=== PATIENT | female | born 1930 | race Caucasian/White ===

== ENCOUNTER 2017-09-16 19:57 | Inpatient (IN) | payer OTHER ==
[~2017-09-16] VITALS: Ht 152.4 cm; Wt 99.9 kg
[2017-09-16 20:40] LABS: HEMOGLOBIN 10.9 G/DL (11.9-15.5); MCH 24.3 PG (29.0-34.0); MCHC 30.3 G/DL (30.0-36.0); MCV 80.2 FL (83-99); PLATELET COUNT 224 K/uL (156-360); RBC DIS.WIDTH-CV 14.9 % (11.8-14.6); RBC DIS.WIDTH-SD 43.8 % (39-53); RED BLOOD COUNT 4.49 M/uL (3.80-5.20); WHITE BLOOD COUNT 12.5 K/uL (4.1-10.2)
[2017-09-16 20:58] LABS: CHLORIDE 94 mEq/L (99-109); POTASSIUM 3.7 mEq/L (3.7-5.4); SODIUM 136 mEq/L (136-147)
[2017-09-16 20:59] LABS: GLUCOSE 232 mg/dL (70-99)
[2017-09-16 21:03] LABS: CREATININE 1.1 mg/dL (0.6-1.3); GFR ESTIMATE (CALCULATED) 50 mL/min/
[2017-09-16 21:04] LABS: UREA NITROGEN (BUN) 25 mg/dL (9-23)
[2017-09-16 21:07] LABS: TROP-I INTERPRETATION NEGATIVE; TROPONIN-I 0.03 ng/mL (0.0-0.30)
[2017-09-16] MEDS ORDERED: GLUCOTROL5 MG PO (21:48)
[2017-09-16] MEDS ORDERED: ACTOS15 MG PO (21:48)
[2017-09-16] MEDS ORDERED: GLUCOPHAGE1000 MG PO (21:48)
[2017-09-16] MEDS ORDERED: JANUVIA100 MG PO (21:48)
[2017-09-16] MEDS ORDERED: HYDROCHLOROTHIA25 MG PO (21:49)
[2017-09-16] MEDS ORDERED: PRAVACHOL20 MG PO (21:51)
[2017-09-16] MEDS ORDERED: METOPROLOL SUC100 MG PO (21:51)
[2017-09-16] MEDS ORDERED: VITAMIN D31000 UNIT PO (21:52)
[2017-09-16] MEDS ORDERED: HEARTBURN TREAT15 MG PO (21:52)
[2017-09-16] MEDS ORDERED: BIOTIN5 MG PO (21:53)
[2017-09-16] MEDS ORDERED: PAIN RELIEVER500 MG PO (21:53)
[2017-09-16] MEDS ORDERED: LUMIGAN 0.50 DROP/22 BOTH EYES (21:54)
[2017-09-16 22:31] LABS: ALBUMIN 4.2 g/dL (3.2-4.8)
[2017-09-16 22:34] LABS: TOTAL PROTEIN 7.1 g/dL (6.4-8.3)
[2017-09-16 22:35] LABS: TOTAL BILIRUBIN 0.4 mg/dL (0.0-1.0)
[2017-09-16 22:37] LABS: ALKALINE PHOSPHATASE 65 IU/L (3-129)
[2017-09-16 22:39] LABS: AST (GOT) 24 IU/L (2-34); DIRECT BILIRUBIN 0.2 mg/dL (0.0-0.3)
[2017-09-16 22:40] LABS: ALT (GPT) 24 IU/L (3-49); LIPASE 57 U/L (1.0-51.0)
[2017-09-16 22:51] LABS: INTER. NORMALIZED RATIO 1.1
[2017-09-16] MEDS ORDERED: PROAIR HFA8.5 GM IH (23:15)
[2017-09-16] MEDS ORDERED: GLIPIZIDE XL5 MG PO (23:15)
[2017-09-16] MEDS ORDERED: METFORMIN HCL1000 MG PO (23:16)
[2017-09-16] MEDS ORDERED: PRAVASTATIN SOD20 MG PO (23:16)
[2017-09-17 06:10] LABS: HEMATOCRIT 35.5 % (36.0-46.0); HEMOGLOBIN 10.6 G/DL (11.9-15.5); MCH 23.9 PG (29.0-34.0); MCHC 29.9 G/DL (30.0-36.0); MCV 80.1 FL (83-99); PLATELET COUNT 218 K/uL (156-360); RBC DIS.WIDTH-CV 14.8 % (11.8-14.6); RBC DIS.WIDTH-SD 43.2 % (39-53); RED BLOOD COUNT 4.43 M/uL (3.80-5.20); WHITE BLOOD COUNT 10.7 K/uL (4.1-10.2)
[2017-09-17 06:11] LABS: CHLORIDE 94 mEq/L (99-109); POTASSIUM 3.6 mEq/L (3.7-5.4); SODIUM 136 mEq/L (136-147)
[2017-09-17 06:12] LABS: GLUCOSE 167 mg/dL (70-99)
[2017-09-17 06:16] LABS: CREATININE 0.9 mg/dL (0.6-1.3); GFR ESTIMATE (CALCULATED) > 59 mL/min/
[2017-09-17 06:17] LABS: UREA NITROGEN (BUN) 21 mg/dL (9-23)
[2017-09-17 15:12] VITALS: BP 187/84
[2017-09-17 20:20] VITALS: BP 167/73
[2017-09-17 23:59] VITALS: BP 182/81
[2017-09-18 04:05] VITALS: BP 187/84
[2017-09-18 04:24] VITALS: BP 177/80
[2017-09-18 08:30] VITALS: BP 183/86
[2017-09-18 09:32] LABS: HEMATOCRIT 35.3 % (36.0-46.0); HEMOGLOBIN 10.3 G/DL (11.9-15.5); MCH 23.5 PG (29.0-34.0); MCHC 29.2 G/DL (30.0-36.0); MCV 80.4 FL (83-99); PLATELET COUNT 178 K/uL (156-360); RBC DIS.WIDTH-CV 14.9 % (11.8-14.6); RBC DIS.WIDTH-SD 43.5 % (39-53); RED BLOOD COUNT 4.39 M/uL (3.80-5.20); WHITE BLOOD COUNT 8.9 K/uL (4.1-10.2)
[2017-09-18 09:39] LABS: INTER. NORMALIZED RATIO 1.3
[2017-09-18 10:25] LABS: ALBUMIN 3.7 G/DL (3.2-4.8); ALKALINE PHOSPHATASE 57 IU/L (3-129); ALT (GPT) 26 IU/L (3-49); AST (GOT) 66 IU/L (2-34); CHLORIDE 90 MEQ/L (99-109); CREATININE 0.7 MG/DL (0.6-1.3); GFR ESTIMATE (CALCULATED) > 59 mL/min/; GLUCOSE 239 mg/dL (70-99); POTASSIUM 3.8 MEQ/L (3.7-5.4); SODIUM 137 MEQ/L (136-147); TOTAL BILIRUBIN 0.7 MG/DL (0.0-1.0); TOTAL PROTEIN 6.1 G/DL (6.4-8.3); UREA NITROGEN (BUN) 16 mg/dL (9-23)
[2017-09-18 11:24] VITALS: BP 182/76
[2017-09-18 15:27] VITALS: BP 142/68
[2017-09-18 20:25] VITALS: BP 138/83
[2017-09-19] VITALS (7 sets, daily range): BP systolic 112–175; BP diastolic 55–90
[2017-09-19 06:41] LABS: BASOPHIL (%) 0.4 % (0-1); EOSINOPHIL (%) 2.4 % (0-5); EOSINOPHIL COUNT 0.2 K/uL (0-0.3); HEMATOCRIT 34.8 % (36.0-46.0); HEMOGLOBIN 10.3 G/DL (11.9-15.5); IMMATURE GRANULOCYTE (%) 0.6 % (0.0-0.7); LYMPHOCYTE (%) 29.6 % (15-42); LYMPHOCYTE COUNT 2.3 K/uL (1.0-2.8); MCH 24.2 PG (29.0-34.0); MCHC 29.6 G/DL (30.0-36.0); MCV 81.9 FL (83-99); MONOCYTE (%) 9.4 % (3-12); MONOCYTE COUNT 0.7 K/uL (0-0.8); NEUTROPHIL (%) 57.6 % (45-76); NEUTROPHIL COUNT 4.6 K/uL (1.8-6.4); PLATELET COUNT 199 K/uL (156-360); RBC DIS.WIDTH-CV 15.2 % (11.8-14.6); RED BLOOD COUNT 4.25 M/uL (3.80-5.20); WHITE BLOOD COUNT 7.9 K/uL (4.1-10.2)
[2017-09-19 06:45] LABS: INTER. NORMALIZED RATIO 1.5
[2017-09-19 07:08] LABS: ALBUMIN 3.7 G/DL (3.2-4.8); ALKALINE PHOSPHATASE 53 IU/L (3-129); ALT (GPT) 22 IU/L (3-49); AST (GOT) 42 IU/L (2-34); CHLORIDE 92 MEQ/L (99-109); GFR ESTIMATE (CALCULATED) 56 mL/min/; GLUCOSE 181 mg/dL (70-99); IRON 58 MCG/DL (35-150); POTASSIUM 3.5 MEQ/L (3.7-5.4); SODIUM 136 MEQ/L (136-147); TOTAL BILIRUBIN 0.6 MG/DL (0.0-1.0); TOTAL PROTEIN 6.1 G/DL (6.4-8.3); TRANSFERRIN (TIBC) 345.6 mg/dL (215-380); TRANSFERRIN SATUR. 17 % (20-55); UREA NITROGEN (BUN) 21 mg/dL (9-23)
[2017-09-19 08:00] LABS: FERRITIN 22 NG/ML (10-291)
[2017-09-19 08:13] LABS: THYROTROPIN (TSH) 3.4 MIU/L (0.4-5.5)
[2017-09-19 08:14] LABS: FOLIC ACID (FOLATE) > 22.0 NG/ML (5.0-22.0)
[2017-09-19 14:11] LABS: BASOPHIL (%) 0.5 % (0-1); EOSINOPHIL (%) 2.3 % (0-5); EOSINOPHIL COUNT 0.2 K/uL (0-0.3); HEMATOCRIT 33.6 % (36.0-46.0); HEMOGLOBIN 9.9 G/DL (11.9-15.5); IMMATURE GRANULOCYTE (%) 0.4 % (0.0-0.7); LYMPHOCYTE (%) 20.3 % (15-42); LYMPHOCYTE COUNT 1.6 K/uL (1.0-2.8); MCH 24.2 PG (29.0-34.0); MCHC 29.5 G/DL (30.0-36.0); MCV 82.2 FL (83-99); MONOCYTE (%) 10.5 % (3-12); MONOCYTE COUNT 0.8 K/uL (0-0.8); NEUTROPHIL COUNT 5.2 K/uL (1.8-6.4); PLATELET COUNT 197 K/uL (156-360); RBC DIS.WIDTH-CV 15.1 % (11.8-14.6); RBC DIS.WIDTH-SD 45.1 % (39-53); RED BLOOD COUNT 4.09 M/uL (3.80-5.20); WHITE BLOOD COUNT 7.8 K/uL (4.1-10.2)
[2017-09-19 16:37] LABS: BASOPHIL (%) 0.4 % (0-1); EOSINOPHIL (%) 2.1 % (0-5); EOSINOPHIL COUNT 0.2 K/uL (0-0.3); HEMATOCRIT 33.3 % (36.0-46.0); HEMOGLOBIN 9.8 G/DL (11.9-15.5); IMMATURE GRANULOCYTE (%) 0.5 % (0.0-0.7); LYMPHOCYTE (%) 23.5 % (15-42); LYMPHOCYTE COUNT 1.8 K/uL (1.0-2.8); MCH 24.1 PG (29.0-34.0); MCHC 29.4 G/DL (30.0-36.0); MONOCYTE (%) 8.9 % (3-12); MONOCYTE COUNT 0.7 K/uL (0-0.8); NEUTROPHIL (%) 64.6 % (45-76); PLATELET COUNT 190 K/uL (156-360); RBC DIS.WIDTH-CV 15.2 % (11.8-14.6); RBC DIS.WIDTH-SD 45.5 % (39-53); RED BLOOD COUNT 4.06 M/uL (3.80-5.20); WHITE BLOOD COUNT 7.7 K/uL (4.1-10.2)
[2017-09-20 03:29] VITALS: BP 158/62
[2017-09-20 06:49] LABS: BASOPHIL (%) 0.5 % (0-1); EOSINOPHIL (%) 2.6 % (0-5); EOSINOPHIL COUNT 0.2 K/uL (0-0.3); HEMOGLOBIN 9.3 G/DL (11.9-15.5); IMMATURE GRANULOCYTE (%) 0.5 % (0.0-0.7); LYMPHOCYTE (%) 27.9 % (15-42); LYMPHOCYTE COUNT 2.3 K/uL (1.0-2.8); MCH 23.6 PG (29.0-34.0); MCHC 29.1 G/DL (30.0-36.0); MCV 81.2 FL (83-99); MONOCYTE (%) 9.1 % (3-12); MONOCYTE COUNT 0.7 K/uL (0-0.8); NEUTROPHIL (%) 59.4 % (45-76); NEUTROPHIL COUNT 4.8 K/uL (1.8-6.4); PLATELET COUNT 196 K/uL (156-360); RBC DIS.WIDTH-SD 44.2 % (39-53); RED BLOOD COUNT 3.94 M/uL (3.80-5.20); WHITE BLOOD COUNT 8.1 K/uL (4.1-10.2)
[2017-09-20 06:53] LABS: INTER. NORMALIZED RATIO 1.7
[2017-09-20 07:22] LABS: ALBUMIN 3.6 G/DL (3.2-4.8); ALKALINE PHOSPHATASE 55 IU/L (3-129); ALT (GPT) 25 IU/L (3-49); AST (GOT) 30 IU/L (2-34); CHLORIDE 96 MEQ/L (99-109); CREATININE 1.1 MG/DL (0.6-1.3); GFR ESTIMATE (CALCULATED) 50 mL/min/; GLUCOSE 194 mg/dL (70-99); POTASSIUM 3.8 MEQ/L (3.7-5.4); SODIUM 139 MEQ/L (136-147); TOTAL BILIRUBIN 0.5 MG/DL (0.0-1.0); UREA NITROGEN (BUN) 23 mg/dL (9-23)
[2017-09-20 07:35] VITALS: BP 144/90
[2017-09-20 11:27] VITALS: BP 144/90
[2017-09-20 13:57] LABS: HEMATOCRIT 32.4 % (36.0-46.0); HEMOGLOBIN 9.5 G/DL (11.9-15.5); MCH 23.9 PG (29.0-34.0); MCHC 29.3 G/DL (30.0-36.0); MCV 81.4 FL (83-99); PLATELET COUNT 201 K/uL (156-360); RBC DIS.WIDTH-SD 44.9 % (39-53); RED BLOOD COUNT 3.98 M/uL (3.80-5.20); WHITE BLOOD COUNT 8.4 K/uL (4.1-10.2)
[2017-09-20 15:27] VITALS: BP 141/65
[2017-09-20 20:28] VITALS: BP 165/74
[2017-09-21 00:46] VITALS: BP 145/65
[2017-09-21 04:09] VITALS: BP 182/77
[2017-09-21 06:46] VITALS: BP 175/76
[2017-09-21 07:03] LABS: INTER. NORMALIZED RATIO 1.6
[2017-09-21 07:09] LABS: BASOPHIL (%) 0.5 % (0-1); EOSINOPHIL (%) 2.8 % (0-5); EOSINOPHIL COUNT 0.2 K/uL (0-0.3); HEMATOCRIT 33.2 % (36.0-46.0); HEMOGLOBIN 9.7 G/DL (11.9-15.5); IMMATURE GRANULOCYTE (%) 0.8 % (0.0-0.7); LYMPHOCYTE (%) 28.4 % (15-42); LYMPHOCYTE COUNT 2.3 K/uL (1.0-2.8); MCH 23.6 PG (29.0-34.0); MCHC 29.2 G/DL (30.0-36.0); MCV 80.8 FL (83-99); MONOCYTE (%) 8.3 % (3-12); MONOCYTE COUNT 0.7 K/uL (0-0.8); NEUTROPHIL (%) 59.2 % (45-76); NEUTROPHIL COUNT 4.7 K/uL (1.8-6.4); PLATELET COUNT 192 K/uL (156-360); RBC DIS.WIDTH-CV 15.2 % (11.8-14.6); RBC DIS.WIDTH-SD 43.8 % (39-53); RED BLOOD COUNT 4.11 M/uL (3.80-5.20); WHITE BLOOD COUNT 7.9 K/uL (4.1-10.2)
[2017-09-21 07:34] LABS: ALBUMIN 3.7 G/DL (3.2-4.8); ALKALINE PHOSPHATASE 58 IU/L (3-129); ALT (GPT) 31 IU/L (3-49); AST (GOT) 31 IU/L (2-34); CHLORIDE 97 MEQ/L (99-109); CREATININE 0.9 MG/DL (0.6-1.3); GFR ESTIMATE (CALCULATED) > 59 mL/min/; GLUCOSE 183 mg/dL (70-99); POTASSIUM 3.5 MEQ/L (3.7-5.4); SODIUM 140 MEQ/L (136-147); TOTAL BILIRUBIN 0.5 MG/DL (0.0-1.0); TOTAL PROTEIN 6.1 G/DL (6.4-8.3); UREA NITROGEN (BUN) 21 mg/dL (9-23)
[2017-09-21 10:01] LABS: PTT 33.9 SEC (25-37)
[2017-09-21 11:13] VITALS: BP 145/60
[2017-09-21 15:10] VITALS: BP 150/70
[2017-09-21 19:07] LABS: ACTIVATED PROTEIN C RESIST+ 4.7 ratio (>=2.1); DRVVT Mixing Study Interp Not Indicated (()); FACTOR VIII ACTIVITY+ 198 % (50-180); PROTEIN C FUNCTIONAL ACTIVITY+ 165 % (70-180); PTT-LA 36 sec (<=40); Protein S, Free 108 % normal (50-147); dRVVT Screen 39 sec (<=45)
[2017-09-21 19:30] VITALS: BP 178/72
[2017-09-22 00:15] VITALS: BP 180/72; BP 183/72
[2017-09-22 01:59] LABS: INTER. NORMALIZED RATIO 1.5
[2017-09-22 02:02] LABS: PTT 79.4 SEC (25-37)
[2017-09-22 03:00] VITALS: BP 183/79
[2017-09-22 05:31] LABS: BASOPHIL (%) 0.5 % (0-1); EOSINOPHIL (%) 2.9 % (0-5); EOSINOPHIL COUNT 0.3 K/uL (0-0.3); HEMATOCRIT 32.9 % (36.0-46.0); HEMOGLOBIN 9.6 G/DL (11.9-15.5); IMMATURE GRANULOCYTE (%) 0.7 % (0.0-0.7); LYMPHOCYTE (%) 29.1 % (15-42); LYMPHOCYTE COUNT 2.5 K/uL (1.0-2.8); MCH 23.8 PG (29.0-34.0); MCHC 29.2 G/DL (30.0-36.0); MCV 81.4 FL (83-99); MONOCYTE COUNT 0.8 K/uL (0-0.8); NEUTROPHIL (%) 57.8 % (45-76); PLATELET COUNT 200 K/uL (156-360); RBC DIS.WIDTH-SD 44.5 % (39-53); RED BLOOD COUNT 4.04 M/uL (3.80-5.20); WHITE BLOOD COUNT 8.6 K/uL (4.1-10.2)
[2017-09-22 05:57] LABS: ALBUMIN 3.7 G/DL (3.2-4.8); ALKALINE PHOSPHATASE 64 IU/L (3-129); ALT (GPT) 30 IU/L (3-49); AST (GOT) 30 IU/L (2-34); CHLORIDE 98 MEQ/L (99-109); CREATININE 0.7 MG/DL (0.6-1.3); GFR ESTIMATE (CALCULATED) > 59 mL/min/; GLUCOSE 151 mg/dL (70-99); POTASSIUM 3.8 MEQ/L (3.7-5.4); SODIUM 140 MEQ/L (136-147); TOTAL BILIRUBIN 0.5 MG/DL (0.0-1.0); TOTAL PROTEIN 6.1 G/DL (6.4-8.3); UREA NITROGEN (BUN) 14 mg/dL (9-23)
[2017-09-22 07:45] VITALS: BP 168/70
[2017-09-22 12:10] LABS: ANTITHROMBIN III ACTIVITY+ 101 % activi (80-120)
[2017-09-22 18:30] VITALS: BP 180/80
[2017-09-22 19:00] VITALS: BP 134/60
[2017-09-22 23:20] VITALS: BP 151/61
[2017-09-23 06:35] LABS: BASOPHIL (%) 0.5 % (0-1); EOSINOPHIL (%) 2.3 % (0-5); EOSINOPHIL COUNT 0.2 K/uL (0-0.3); HEMATOCRIT 33.9 % (36.0-46.0); HEMOGLOBIN 9.9 G/DL (11.9-15.5); IMMATURE GRANULOCYTE (%) 0.8 % (0.0-0.7); LYMPHOCYTE (%) 23.9 % (15-42); LYMPHOCYTE COUNT 1.9 K/uL (1.0-2.8); MCH 23.6 PG (29.0-34.0); MCHC 29.2 G/DL (30.0-36.0); MCV 80.9 FL (83-99); MONOCYTE (%) 8.8 % (3-12); MONOCYTE COUNT 0.7 K/uL (0-0.8); NEUTROPHIL (%) 63.7 % (45-76); PLATELET COUNT 216 K/uL (156-360); RBC DIS.WIDTH-CV 15.4 % (11.8-14.6); RED BLOOD COUNT 4.19 M/uL (3.80-5.20); WHITE BLOOD COUNT 7.9 K/uL (4.1-10.2)
[2017-09-23 06:52] LABS: ALBUMIN 3.7 G/DL (3.2-4.8); ALKALINE PHOSPHATASE 67 IU/L (3-129); ALT (GPT) 30 IU/L (3-49); AST (GOT) 29 IU/L (2-34); CHLORIDE 99 MEQ/L (99-109); CREATININE 0.9 MG/DL (0.6-1.3); GFR ESTIMATE (CALCULATED) > 59 mL/min/; GLUCOSE 206 mg/dL (70-99); POTASSIUM 3.5 MEQ/L (3.7-5.4); SODIUM 139 MEQ/L (136-147); TOTAL BILIRUBIN 0.6 MG/DL (0.0-1.0); UREA NITROGEN (BUN) 16 mg/dL (9-23)
[2017-09-23] MEDS ORDERED: ANUCORT-HC25 MG PR (07:01)
[2017-09-23] MEDS ORDERED: ELIQUIS5 MG PO (07:01)
[2017-09-23 07:20] VITALS: BP 190/75
[2017-09-23 07:35] LABS: INTER. NORMALIZED RATIO 1.5
== END 2017-09-23 12:21 | disposition home or self-care (01) | DRG 175 ==
LOC: EME → EDBD 19:57 → EME 19:57 → 2EAST 09-17 02:39 → EDOF 09-17 02:39 → ENRESERV 09-17 02:41 → 2EAST 09-17 15:06 → ENPENDDIS 09-23 09:08 → 2EAST 09-23 12:21
PROVIDERS: Anesthesiology; Hospitalist; Internal Medicine; Physician Assistant
PROC: 0DJD8ZZ Inspection of Lower Intestinal Tract, Via Natural or Artificial Opening Endoscopic (ICD-10-PCS; principal; 2017-09-22)
DX: I26.99 Other pulmonary embolism without acute cor pulmonale (principal); I82.442 Acute embolism and thrombosis of left tibial vein; J96.91 Respiratory failure, unspecified with hypoxia; I11.0 Hypertensive heart disease with heart failure; I50.30 Unspecified diastolic (congestive) heart failure; J44.9 Chronic obstructive pulmonary disease, unspecified; I89.0 Lymphedema, not elsewhere classified; E11.9 Type 2 diabetes mellitus without complications; K21.9 Gastro-esophageal reflux disease without esophagitis; D64.9 Anemia, unspecified; E78.5 Hyperlipidemia, unspecified; K59.00 Constipation, unspecified; K64.8 Other hemorrhoids; M19.90 Unspecified osteoarthritis, unspecified site; E66.9 Obesity, unspecified; Z66 Do not resuscitate; Z68.41 Body mass index [BMI] 40.0-44.9, adult; Z86.711 Personal history of pulmonary embolism; Z86.718 Personal history of other venous thrombosis and embolism
CPT/HCPCS: 71046; 71275; 74177; 80048; 80053; 80076; 81003; 81240 90; 82565; 82607; 82728; 82746; 82948; 83090 90; 83540; 83605; 83690; 84443; 84466; 84484; 84520; 85025; 85025 91; 85027; 85240 90; 85300 90; 85303 90; 85305 90; 85306 90; 85307 90; 85610; 85613 90; 85730; 85730 90; 86146 90; 86147 90; 87040; 93005; 93970; 94799; 99202; 99281; 99285; C9113; J1650; J1815; J1940; J7030